=== PATIENT | male | born 1935 | race Two or more races ===

== ENCOUNTER 2018-05-22 12:27 | Day surgery (SDC) | payer MEDICAID ==
[2018-05-22] MEDS ORDERED: ATROPINE SULFATE 1 MG/10 ML SYR IVP ONE (12:29)
[2018-05-22] MEDS ORDERED: fentaNYL 100 MCG/2 ML INJ IVP ONE (12:29)
[2018-05-22] MEDS ORDERED: NS 500 ML IV ONE (12:29)
[2018-05-22] MEDS ORDERED: MIDAZOLAM 2 MG/2 ML VIAL IVP ONE (12:29)
[2018-05-22 13:16] LABS: INR 1.18 (0.83-1.16); PROTIME(PATIENT) 14.5 SEC (12.0-15.0)
--- NOTE | 2018-05-22 13:23 | CPEKG ---
Test Reason : OPEN Blood Pressure : / mmHG Vent. Rate : 102 BPM Atrial Rate : 000 BPM P-R Int : 176 ms QRS Dur : 096 ms QT Int : 363 ms P-R-T Axes : 000 087 -08 degrees QTc Int : 473 ms Atrial fibrillation Borderline right axis deviation Confirmed by Cosme Vicente ([id number]) on 05/22/2018 1:23:08 PM Referred By: Luis Baer Confirmed By:Cosme Vicente
[2018-05-22] MEDS ORDERED: NALOXONE HCL 0.4 MG/ML INJ IVP PRN (13:40)
--- NOTE | 2018-05-22 13:40 | PDANEPAE ---
ANE History of Present Illness a-fib with rvr ANE Past Medical History - Cardiovascular History Hx Hypertension: No Hx Arrhythmias: Yes Hx Chest Pain: No Hx Coronary Artery / Peripheral Vascular Disease: No Hx CHF / Valvular Disease: No Hx Palpitations: No - Pulmonary History Hx COPD: No Hx Asthma/Reactive Airway Disease: No Hx Recent Upper Respiratory Infection: No Hx Oxygen in Use at Home: No Hx Sleep Apnea: No Pulmonary History Comment: + h/o heavy smoking, quit 1 month ago - Neurologic History Hx Cerebrovascular Accident: No Hx Seizures: No Hx Dementia: No - Endocrine History Hx Diabetes: No Hypothyroid: No Hyperthyroid: No Obesity: no - Renal History Hx Renal Disorders: Yes Renal History Comment: creatinine 1.4 - Liver History Hx Hepatic Disorders: No ANE Review of Systems Review of systems is: negative Review of Systems: - Exercise capacity Exercise capacity: >=4 METS ANE Patient History - Allergies Allergies/Adverse Reactions: No Known Allergies Allergy (Unverified 05/22/18 12:29) - Home Medications Home medications: home medication list seen and reviewed Home Medications: Apixaban [Eliquis] 2.5 mg PO BID 05/22/18 [Last Taken 05/22/18 05:00] Finasteride [Proscar 5 MG (*)] 5 mg PO DAILY 05/22/18 [Last Taken 05/22/18] Tamsulosin HCl [Flomax 0.4 MG (*)] 0.4 mg PO DAILY 05/22/18 [Last Taken Unknown] Travoprost [Travatan Z] 1 drop DAILY 05/22/18 [Last Taken 05/22/18] - NPO status NPO Status: no food or drink >8 hours - Anes Hx Anes Hx: no prior problems - Smoking Hx Smoking Status: Former smoker (+ long time smoker, recently quit 1 month ago) ANE Labs/Vital Signs - Labs Result Diagrams: 05/22/18 13:00 - Vital Signs Vital Signs: reviewed preoperatively; see RN documention for details Height: 175.26 cm Weight: 79.379 kg ANE Physical Exam - Airway Neck exam: FROM Mallampati Score: Class 2 Mouth exam: poor dentition - Pulmonary Pulmonary: no respiratory distress - Cardiovascular Cardiovascular: irregularly irregular - ASA Status ASA Status: III ANE Anesthesia Plan Anesthesia Plan: GA with mask
[2018-05-22] MEDS ORDERED: PROPOFOL 200 MG/20 ML VIAL ONE (13:42)
--- NOTE | 2018-05-22 13:43 | PDHPUP ---
History & Physical Update H&P update statement: This history and physical update is based on an assessment of the patient which was completed after admission or registration (within 24 hours), but prior to the surgery/procedure. H&P update: H&P reviewed & patient examined, no change in patient's condition since H&P completed
--- NOTE | 2018-05-22 13:52 | PDCARD ---
Cardioversion Procedure Procedure: electrical cardioversion Indications: atrial fibrillation Consent: signed and in chart Anticoagulation: eliquis Procedural Details: Pads were placed in anterior-posterior position. Synchronized cardioversion attempt #1: [id number] Conclusions: successful cardioversion
--- NOTE | 2018-05-22 14:09 | POSTANESTH ---
Post Anesthetic Evaluation Cardiovascular Status: Normal, Stable Respiratory Status: Normal, Stable Level of Consciousness/Mental Status: Can Participate in Eval Pain Control: Adequate, Prn Tx Ordered Nausea/Vomiting Control: Adequate, Prn Tx Ordered Complications Possibly Related to Anesthesia: None Noted
--- NOTE | 2018-05-23 16:23 | CPEKG ---
Test Reason : OPEN Blood Pressure : / mmHG Vent. Rate : 074 BPM Atrial Rate : 073 BPM P-R Int : 198 ms QRS Dur : 098 ms QT Int : 411 ms P-R-T Axes : 071 078 052 degrees QTc Int : 456 ms Sinus rhythm Confirmed by Cosme Vicente ([id number]) on 05/23/2018 4:22:55 PM Referred By: Luis Baer Confirmed By:Cosme Vicente
== END 2018-05-22 15:25 | disposition home or self-care (01) ==
LOC: FCATH 12:27
PROVIDERS: ATTEND Internal Medicine Cardiovascular Disease
PROC: 5A2204Z Restoration of Cardiac Rhythm, Single (ICD-10-PCS; principal; 2018-05-22)
DX: I48.0 Paroxysmal atrial fibrillation (principal); Z79.01 Long term (current) use of anticoagulants; I10 Essential (primary) hypertension; I42.9 Cardiomyopathy, unspecified; Z87.891 Personal history of nicotine dependence
CPT/HCPCS: J0461; J2704